=== PATIENT | female | born 1980 | race Caucasian/White ===

== ENCOUNTER 2022-08-08 17:11 | Emergency (ER) | payer BC, SELFPAY ==
[2022-08-08 17:23] VITALS: BP 123/56; PULSE 91; RESP 18; TEMP 36.8; O2SAT 97; BMI 23.3
--- NOTE | 2022-08-08 18:23 | ED.EYEPROB ---
HPI - Eye Problem General Chief complaint: Eye Problems Stated complaint: Left eye cyst Time Seen by Provider: 08/08/22 18:23 Source: patient Mode of arrival: ambulatory Limitations: no limitations History of Present Illness HPI Narrative: Patient is a 41-year-old female who presents to the emergency department for evaluation of a left upper lid hordeolum. Onset 2 months ago. Seen by PCP 1 month ago, advised warm compress, and antibiotic eye drops. Called them 2 weeks later, advised still problematic, was evaluated again, received RX for antibiotic eye ointment. Received referral to ophthalmology, seen 2 days ago, received prescription for an ointment, has an appointment for incision and drainage 08/29/2022. States she can not wait this long. Related Data Allergies Allergy/AdvReac Type Severity Reaction Status Date / Time No Known Allergies Allergy Verified 08/08/22 17:29 Review of Systems Review of Systems: Yes all other systems are reviewed and are negative PMFSH Past Medical History Attestation statement: The following information was validated with the patient. Source: old records reviewed Social History Social History Advance Directives: No Advance Directives Information Provided: No Physical Exam Vital Signs: Vital Signs: Last Vital Signs Temp 98.3 F 08/08/22 17:23 Pulse 91 08/08/22 17:23 Resp 18 08/08/22 17:23 BP 123/56 L 08/08/22 17:23 Pulse Ox 97 08/08/22 17:23 O2 Del Method 08/08/22 17:23 BMI result Body Mass Index 23.3 Appearance: Alert.?Oriented to person, place and time. No acute distress.?Normal affect. Eyes: Pupils equal, round and reactive to light.?EOMi. No nystagmus. Left upper lid hordeolum? CVS: Heart sounds normal. Normal heart rate and rhythm.? Pulses normal.?? Respiratory: No respiratory distress.? Lung sounds clear to auscultation bilaterally?? Skin: Skin warm and dry.? Normal skin color.? Medical Decision Making Medical Decision Making MDM Narrative: Patient is a 41-year-old female who presents emergency department for persistent left eye hordeolum. Has scheduled incision and drainage with ophtho, does not want to wait for appointment. Physical examination is not consistent with periorbital or orbital cellulitis at this time. Discussed with patient plan of care, continued use of antibiotic ointment, warm compresses, follow-up with ophthalmology. We additionally discussed that she may contact her insurance company to find in network ophthalmologists and contact our office to see whether she may be evaluated/treated sooner, also provided with contact information for Dr. Campos associated with [facility]. Reviewed worrisome signs and symptoms that would warrant re-evaluation in the emergency department. All questions answered. Stable for discharge. Differential Diagnosis Differential Diagnoses: The differential diagnosis associated with the presentation includes (hordeolum, chalazion, blepharitis) External Record Review External record reviewed: Outpatient record Discharge Plan Discharge Clinical Impression: Hordeolum Patient Disposition: Home, Self-Care Instructions: Ashwini (ED) Additional Instructions: Please continue taking antibiotic eye ointment as prescribed by your eye doctor. Follow-up for incision and drainage as you have scheduled. As we discussed, you may contact your insurance company to find eye doctors within network coverage and determine whether you can schedule an appointment to be seen sooner. I have also provided the contact information for the eye doctor associated with this hospital, you may try contacting their office to determine if they have a sooner appointment/whether they are within your insurance coverage. You may return back to emergency department with any new or worsening symptoms or concerns. Referrals: Hugo Campos [Physician] -
== END 2022-08-08 18:40 | disposition home or self-care (01) ==
PROVIDERS: Emergency Provider Emergency Medicine Emergency Medical Services
DX: H00.014 Hordeolum externum left upper eyelid (principal)
CPT/HCPCS: 99282

== ENCOUNTER 2024-12-08 10:47 | Outpatient (REF) | payer OTHER, SELFPAY ==
--- OUTSIDE RECORDS SUMMARY | 2024-12-08 11:52 | XMS_ITS | Encounter Summary ---
Author Organization [employer] Address [address] [place] [address] [address] [place] [address] Care Team Providers Care Outreach Worker Name Role Phone Deidre Madison MD Primary Care Provider [phone] Reason for Visit * Reason Onset Date Comments ER Follow-up 05/02/2022 Encounter Details Date Type Department Care Team (Late st Contact Info) Description 05/02/2022 Telephone [facility] MED [facility] PEDS [address] [place] [address] Deidre Madison MD [address] [place] [address] ER Follow-up Social History Tobacco Use Types Packs/Day Years Used Date Smoking Tobacco: Never Assessed Comments Unknown Sex and Gender Information Value Date Recorded Sex Assigned at Female 04/01/2022 10:14 AM EDT Legal Sex Female 10:14 AM EDT Gender Identity Female 04/01/2022 10:14 AM EDT Sexual Orientation Straight 04/01/2022 10 :14 AM EDT COVID-19 Exposure Response Date Recorded In the last 10 days, have yo u been in contact with someone who was confirmed or suspected to have Coronavirus/COVID-19? No / Unsure 05/03/2022 2:14 PM EST documented as of this encounter Miscellaneous Notes * Telephone Encounter - Alden Reid RN - 05/03/2022 10:14 AM EST Request for ED notes faxed to [facility] HIM dept at [phone]. * Telephone Encounter - Cammie Paredes RN - 05/03/2022 8:41 AM EST Call returned for triage at pt request. Per pt was given Rx for muscle relaxer methocarbamol 750mg Q6H. Per pt would need to go to a chiropractor per ED recommendation. Pt wants follow up appt. Agrees to [facility] at [facility] today 05/03 at 2:20pm. Will route to team to obtain [facility] ER notes forprovider Dr. Madison. 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 Will attempt call again tomorrow morning. * Telephone Encounter - Louise Cobb - 05/02/2022 1:50 PM EST Tc from pt returning call please see notes below. * Telephone Encounter - Louise Cobb - 05/02/2022 11:51 AM EST Patient calling to report ED visit on 05/01 at [facility] . Diagnosed with Cervical strain, trapisia spasmus. Patient advised will forward to team nurse for follow up. PCP Dr. Jiang documented in this encounter Plan of Treatment Not on file documented as of this encounter Visit Diagnoses Not on filedocumented in this encounter Care Teams Outreach Worker Relationship Specialty Start Date End Date Deidre Madison MD [address] [place] [address] PCP - General Family Medicine 06/09/13 documented as of this encounter
--- OUTSIDE RECORDS SUMMARY | 2024-12-08 11:52 | XMS_ITS | Clinical Summary ---
Author Organization [facility] Address [address] [place] [address] Phone Care Team Providers Care Client Leader Name Role Phone Deidre Madison MD Primary Care Provider [phone] Allergies No known active allergies Medications hydrOXYzine HCL (ATARAX) 25 mg tablet Take 1 tablet (25 mg total) by mouth every 6 (six) hours for 3 days. 12 tablet 10/04/2024 Active Active Problems No known active problems Encounters Date Type Department Care Team Description 10/04/2024 9:29 AM EDT - 10/04/2024 11:39 AM EDT Emergency [facility] Emergency [address] [place] [address] Chest pain, unspecified type (Primary Dx) Discharge Disposition: Home or Self Care from Last 3 Months Surgical History Surgery Date Site/Laterality Comments OTHER SURGICAL HISTORY 2013 Bilateral PROCEDURE: HISTORICAL ESSURE (BILATERAL OCCLUSION FALLOPIAN TUBES-PERMA) Medical History Medical History Date Comments Depression 17 yrs ago DX:Depression Depression with anxiety 03/08/2020 DX:Depre ssion with anxiety Family History Medical History Relation Name Comments Hypertension Father Other: cancer of bone Father Hyperthyroidism Mother on med Hyperthyroidism Sister 1 on med Cervical cancer Neg Hx Ovarian cancer Neg Hx Prostate cancer Neg Hx Relation Name Status Comments Brother x5 Father Alive Mother Alive Sister 1 Alive Sister 2 x4 Alive Social History Tobacco Use Types Packs/Day Years Used Date Smoking Tobacco: Never Smokeless Tobacco: Never Alcohol Use Standard Drinks/Week Comments No 0 (1 standard drink = 0.6 oz pur e alcohol) Comments Unknown Sex and Gender Information Value Date Recorded Sex Assigned at Female 04/21/2024 9:16 AM EST Legal Sex Female 2:16 AM EST Gender Identity Female 04/21/2024 9:16 AM EST Sexual Orientation Straight 04/21/2024 9: 31 AM EST Obstetrics History Last Filed Vital Signs Vital Sign Reading Time Taken Comments Blood Pressure 112/72 10/04/2024 9:07 AM EDT Pulse 96 10/04/2024 9:07 AM EDT Temperature 36.8 C (98.2 F) 10/04/2024 9:07 AM EDT Respiratory Rate 16 10/04/2024 9:07 AM EDT Oxygen Saturation 97% 10/04/2024 9:07 AM EDT Inhaled Oxygen Concentration - - Weight 77.1 kg (170 lb) 10/04/2024 9:59 AM EDT Height 170.7 cm (5' 7.2 ) 10/04/2024 9:59 AM EDT Body Mass Index 26.47 10/04/2024 9:59 AM EDT Plan of Treatment Health Maintenance Due Date Last Done Comments Breast Cancer Screening 1982 Hepatitis B Vaccines (1 of 3 - 19+ 3-dose series) 2001 HPV Vaccines (2 - 3-dose series) 03/27/2009 02/27/2009 HIV Screening 05/05/2022 Social Influencers of Health Screening 05/05/2022 COVID-19 Vaccine ( season) 2024 11/14/2020, 10/24/2020 Cervical Cancer Screening: Pap Smear 07/05/2024 07/05/2021, 12/24/2017, 12/24/2017 Depression Screening 10/16/2024 10/17/2023 Influenza Vaccine (#1) 2025 , 07/25/2022, 02/18/2018, Additional history exists DTaP,Tdap,and Td Vaccines (4 - Td or Tdap) 10/16/2033 10/17/2023, 08/09/2013, 01/10/2012 Hepatitis C Screening Completed 10/17/2023 HIB Vaccines Aged Out No longer eligi ble based on patient's age to complete this topic Hepatitis A Vaccines Aged Out No long er eligible based on patient's age to complete this topic IPV Vaccines Aged Out No longer eligi ble based on patient's age to complete this topic MMR Vaccines Aged Out No longer eligi ble based on patient's age to complete this topic Meningococcal ACWY Vaccine Aged Out N o longer eligible based on patient's age to complete this topic Meningococcal B Vaccine Aged Out No l onger eligible based on patient's age to complete this topic Pneumococcal Vaccine: Pediatrics (0 to 5 Years) and At-Risk Patients (6 to 49 Years) Aged Out No longer eligible based on patient's age to complete this topic RSV Immunization Patients Under 20 months Aged Out No longer eligible based on patient's age to complete this topic Varicella Vaccines Aged Out No longer eligible based on patient's age to complete this topic Procedures Procedure Name Priority Date/Time Associated Diagnosis Comments ECG ANNOTATED 10/05/2024 XR CHEST 2 VIEWS STAT 10/04/2024 10:4 3 AM EDT ECG 12-LEAD STAT 10/04/2024 10:19 AM EDT D-DIMER STAT 10/04/2024 10:13 AM EDT TROPONIN I HIGH SENSITIVITY STAT 10/04/2024 10:06 AM EDT CBC WITH AUTO DIFFERENTIAL STAT 10/04/2024 9:05 AM EDT MAGNESIUM STAT 10/04/2024 9:05 AM EDT LIPASE STAT 10/04/2024 9:05 AM EDT COMPREHENSIVE METABOLIC PANEL STAT 10/04/2024 9:05 AM EDT CBC AND DIFFERENTIAL STAT 10/04/2024 9:05 AM EDT TROPONIN I HIGH SENSITIVITY STAT 10/04/2024 9:05 AM EDT ECG 12-LEAD STAT 10/04/2024 8:59 AM EDT PAP SMEAR Routine 07/05/2021 from Last 3 Months or Most Recently Relevant to Health Maintenance Results * ECG-Annotated (10/05/2024) us Provider Onbase ECG ORDERABLES Final Result * XR Chest 2 Views (10/04/2024 10:43 AM EDT) Anatomical Region Laterality Modality Body Radiographic Juliane ging 10/04/2024 10:4 6 AM EDT Impressions 10/04/2024 10:48 AM EDT No acute pulmonary disease. No change in appearance of the lungs since the prior study performed 03/24/2014. Code 74497 -------- FINAL REPORT -------- Dictated By: Josh Gomez Dictated Date: 10/04/2024 10:46 ET Assigned Physician: Josh Gomez Reviewed and Electronically Signed By: Josh Gomez Signed Date: 10/04/2024 10:48 ET Workstation ID: [id number] Transcribed By: Self Edit Transcribed Date: 10/04/2024 10:46 ET Narrative 10/04/2024 10:48 AM EDT HISTORY: The patient is a 44-year-old female with chest pain. FINDINGS: Sitting AP and lateral radiographs of the chest demonstrate normal appearance of the bony structures. The cardiac and mediastinal contours are within normal limits. The lungs and costophrenic angles are clear. A soft tissue calcification is present adjacent to the greater tuberosity of the right humerus consistent with calcific tendinitis, not demonstrated on the prior study performed 03/24/2014. Cholecystectomy clips are are again noted. Procedure Note Josh Gomez MD - 10/04/2024 HISTORY: The patient is a 44-year-old female with chest pain. FINDINGS: Sitting AP and lateral radiographs of the chest demonstratenormal appearance of the bony structures. The cardiac and mediastinalcontours are within normal limits. The lungs and costophrenic angles areclear. A soft tissue calcification is present adjacent to the greater tuberosityof the right humerus consistent with calcific tendinitis, not demonstratedon the prior study performed 03/24/2014. Cholecystectomy clips are areagain noted. IMPRESSION: No acute pulmonary disease. No change in appearance of the lungs since theprior study performed 03/24/2014. Code 29458 -------- FINAL REPORT -------- Dictated By: Josh Gomez Dictated Date: 10/04/2024 10:46 ET Assigned Physician: Josh Gomez Reviewed and Electronically Signed By: Josh Gomez Signed Date: 10/04/2024 10:48 ET Workstation ID: [id number] Transcribed By: Self Edit Transcribed Date: 10/04/2024 10:46 ET us Aramis Navarro MD IMG XR PROCEDURES Final Result * ECG 12 lead (10/04/2024 10:19 AM EDT) Only the most recent of2 resultswithin the time period is included. Ventricular Rate ECG 69 BPM GEMUSE Atrial Rate 69 BPM GEMUSE P-R Interval 130 ms GEMUSE QRS Duration 84 ms GEMUSE Q-T Interval 384 ms GEMUSE QTc 411 ms GEMUSE P Wave [place] 62 degrees GEMUSE R [place] 37 degrees GEMUSE T [place] 32 degrees GEMUSE ECG Interpretation Normal sinus rhythm Normal ECG When compared with ECG of 04-OCT-2024 08:59, No significant change was found Confirmed by MD Rogelio, Juana Diaz ([id number]) on 10/05/2024 7:43:28 AM GEMUSE 10/04/2024 10:1 9 AM EDT 10/05/2024 7:43 AM EDT us Aramis Navarro MD ECG ORDERABLES Final Result GEMUSE * D-dimer, quantitative (10/04/2024 10:13 AM EDT) D-Dimer, Quant (D-DU) 202 <=230 ng/mL DDU LAB COAGULATION METHOD 10/04/2024 10:40 AM EDT [facility] Blood Venous blood specimen / Unknown Venipuncture / Unknown 10/04/2024 10:13 AM EDT 10/04/2024 10:25 AM EDT Narrative [facility] - 10/04/2024 10:40 AM EDT D-Dimer <230 ng/mL (D-Dimer units) is the threshold for exclusion of DVT/PE. D-Dimer may be elevated in: Critically ill, severely infected, trauma patients, DIC, acute CVA, acute TX, unstable angina, AF, old age, , and smoking. D-Dimer may be decreased with: Initiation of heparin therapy and oral anticoagulants. Carla SAHU LAB BLOOD ORDERABLES Final Re sult Performing Organization Address [facility]/ZIP Co de Phone Number [facility] [address] [place] [address], [place] [phone] * Troponin I high sensitivity (10/04/2024 10:06 AM EDT) Only the most recent of2 resultswithin the time period is included. [facility] High Sensitivity Troponin I 6 <=54 ng/L LAB CHEMISTRY METHOD 10/04/2024 11:05 AM EDT [facility] Blood Venous blood specimen / Unknown Venipuncture / Unknown 10/04/2024 10:06 AM EDT 10/04/2024 10:25 AM EDT Narrative [facility] - 10/04/2024 11:05 AM EDT High levels of biotin in samples may falsely decrease hsTroponin values. Use caution when interpreting hsTroponin results in patients taking biotin who exhibit renal impairment (eGFR <60) or in patients taking more than 20 mg/day of biotin. us Aramis Navarro MD LAB BLOOD ORDERABLES Final Resu lt Performing Organization Address [facility]/ZIP Co de Phone Number [facility] [address] [place] [address], [place] [phone] * (ABNORMAL) CBC auto differential (10/04/2024 9:05 AM EDT) [facility] WBC 6.4 4.8 - 10.8 K/mcL LAB HEMETOLOGY METHOD 10/04/2024 9:56 AM [facility] RBC 4.90(H) 3.80 - 4.80 M/mcL LAB HEMETOLOGY METHOD 10/04/2024 9:56 AM [facility] Hemoglobin 11.8 11.5 - 16.0 g/dL LAB HEMETOLOGY METHOD 10/04/2024 9:56 AM [facility] Hematocrit 38.1 35.0 - 47.0 % LAB HEMETOLOGY METHOD 10/04/2024 9:56 AM [facility] MCV 78.4(L) 79.0 - 98.0 FL LAB HEMETOLOGY METHOD 10/04/2024 9:56 AM [facility] MCH 24.3(L) 27.0 - 32.0 pcg LAB HEMETOLOGY METHOD 10/04/2024 9:56 AM [facility] MCHC 31.0(L) 32.0 - 37.0 g/dL LAB HEMETOLOGY METHOD 10/04/2024 9:56 AM [facility] RDW 15.0 11.0 - 15.0 % LAB HEMETOLOGY METHOD 10/04/2024 9:56 AM [facility] Platelets 339 130 - 400 K/mcL LAB HEMETOLOGY METHOD 10/04/2024 9:56 AM [facility] MPV 10.5 7.0 - 11.0 FL LAB HEMETOLOGY METHOD 10/04/2024 9:56 AM [facility] NRBC 0.0 <1.0 % LAB HEMETOLOGY METHOD 10/04/2024 9:56 AM [facility] NRBC Absolute 0.00 <0.10 K/mcL LAB HEMETOLOGY METHOD 10/04/2024 9:56 AM [facility] Neutrophils Relative 72.6 % LAB HEMETOLOGY METHOD 10/04/2024 9:56 AM [facility] Lymphocytes Relative 17.4 % LAB HEMETOLOGY METHOD 10/04/2024 9:56 AM [facility] Monocytes Relative 6.4 % LAB HEMETOLOGY METHOD 10/04/2024 9:56 AM [facility] Eosinophils Relative 2.5 % LAB HEMETOLOGY METHOD 10/04/2024 9:56 AM [facility] Basophils Relative 0.5 % LAB HEMETOLOGY METHOD 10/04/2024 9:56 AM [facility] Immature Granulocytes Relative 0.6 % LAB HEMETOLOGY METHOD 10/04/2024 9:56 AM [facility] Neutrophils Absolute 4.64 1.50 - 7.00 K/mcL LAB HEMETOLOGY METHOD 10/04/2024 9:56 AM [facility] Lymphocytes Absolute 1.11 1.00 - 5.00 K/mcL LAB HEMETOLOGY METHOD 10/04/2024 9:56 AM [facility] Monocytes Absolute 0.41 0.20 - 1.00 K/mcL LAB HEMETOLOGY METHOD 10/04/2024 9:56 AM [facility] Eosinophils Absolute 0.16 0.00 - 0.50 K/mcL LAB HEMETOLOGY METHOD 10/04/2024 9:56 AM [facility] Basophils Absolute 0.03 0.00 - 0.20 K/mcL LAB HEMETOLOGY METHOD 10/04/2024 9:56 AM [facility] Immature Granulocytes Absolute 0.04(H) 0.00 - 0.03 K/mcL LAB HEMETOLOGY METHOD 10/04/2024 9:56 AM [facility] Blood Venous blood specimen / Unknown Venipuncture / Unknown 10/04/2024 9:05 AM EDT 10/04/2024 9:46 AM EDT us Aramis Navarro MD LAB BLOOD ORDERABLES Final Resu lt Performing Organization Address [facility]/ZIP Co de Phone Number [facility] [address] [place] [address], [place] [phone] * Magnesium (10/04/2024 9:05 AM EDT) Magnesium 1.9 1.9 - 2.6 mg/dL LAB CHEMISTRY METHOD 10/04/2024 10:18 AM EDT [facility] Blood Venous blood specimen / Unknown Venipuncture / Unknown 10/04/2024 9:05 AM EDT 10/04/2024 9:46 AM EDT us Aramis Navarro MD LAB BLOOD ORDERABLES Final Resu lt Performing Organization Address [facility]/ZIP Co de Phone Number [facility] [address] [place] [address], [place] [phone] * Lipase (10/04/2024 9:05 AM EDT) Lipase 21 13 - 75 unit/L LAB CHEMISTRY METHOD 10/04/2024 10:18 AM EDT [facility] Blood Venous blood specimen / Unknown Venipuncture / Unknown 10/04/2024 9:05 AM EDT 10/04/2024 9:46 AM EDT us Aramis Navarro MD LAB BLOOD ORDERABLES Final Resu lt Performing Organization Address City/[facility]/ZIP Co de Phone Number [facility] [address] [place] [address], [place] [phone] * Comprehensive metabolic panel (10/04/2024 9:05 AM EDT) [facility] Sodium 139 133 - 145 mmol/L LAB CHEMISTRY METHOD 10/04/2024 10:18 AM [facility] Potassium 4.1 3.5 - 5.5 mmol/L LAB CHEMISTRY METHOD 10/04/2024 10:18 AM [facility] Chloride 107 96 - 110 mmol/L LAB CHEMISTRY METHOD 10/04/2024 10:18 AM [facility] CO2 23 21 - 32 mmol/L LAB CHEMISTRY METHOD 10/04/2024 10:18 AM [facility] Anion Gap 9 3 - 11 LAB CHEMISTRY METHOD 10/04/2024 10:18 AM [facility] Glucose 79 70 - 100 mg/dL LAB CHEMISTRY METHOD 10/04/2024 10:18 AM [facility] BUN 16 5 - 25 mg/dL LAB CHEMISTRY METHOD 10/04/2024 10:18 AM [facility] Creatinine 0.94 0.50 - 1.10 mg/dL LAB CHEMISTRY METHOD 10/04/2024 10:18 AM [facility] eGFR 78 >=60 mL/min/1. 73m2 LAB CHEMISTRY METHOD 10/04/2024 10:18 AM [facility] Comment:Calculation based on the Chronic Kidney Disease Epidemiology Collaboration (CKD-EPI) equation refit without adjustment for race. BUN/Creatinine Ratio 17.0 LAB CHEMISTRY METHOD 10/04/2024 10:18 AM [facility] Calcium 9.0 8.5 - 10.5 mg/dL LAB CHEMISTRY METHOD 10/04/2024 10:18 AM [facility] AST (SGOT) 11 10 - 42 unit/L LAB CHEMISTRY METHOD 10/04/2024 10:18 AM [facility] ALT (SGPT) 19 10 - 60 unit/L LAB CHEMISTRY METHOD 10/04/2024 10:18 AM [facility] Alkaline Phosphatase 92 42 - 121 unit/L LAB CHEMISTRY METHOD 10/04/2024 10:18 AM EDT [facility] Total Protein 7.0 6.0 - 8.0 g/dL LAB CHEMISTRY METHOD 10/04/2024 10:18 AM EDT [facility] Albumin 3.7 3.2 - 5.0 g/dL LAB CHEMISTRY METHOD 10/04/2024 10:18 AM EDT [facility] Total Bilirubin 0.2 0.0 - 1.4 mg/dL LAB CHEMISTRY METHOD 10/04/2024 10:18 AM EDT [facility] Blood Venous blood specimen / Unknown Venipuncture / Unknown 10/04/2024 9:05 AM EDT 10/04/2024 9:46 AM EDT us Aramis Navarro MD LAB BLOOD ORDERABLES Final Resu lt [facility] [address] [place] [address], [place] [phone] * Pap smear (07/05/2021) 07/05/2021 Narrative HISTORICAL TESTING LAB RESULTING AGENCY - 07/26/2021 7:51 AM EST [id number] THINPREP PAP, IMAGED: NEGATIVE FOR SQUAMOUS INTRAEPITHELIAL LESION AND MALIGNANCY . NOTE: THE PAP TEST IS A SCREENING TEST WITH AN INHERENT FALSE NEGATIVE RATE. AUTOMATED PRESCREENING OF ALL LIQUID BASED SPECIMENS IS PERFORMED BY THE THINPREP IMAGING SYSTEM UNLESS OTHERWISE STATED. VIRAL LEBRON(ASCP) (CASE ELECTRONICALLY SIGNED 07 25 2021) RESULT OF APTIMA HIGH RISK HPV ASSAY: HIGH RISK HPV: NEGATIVE (SEROTYPES 16,18,31,33,35,39,45,51,52,56,58,59,66,68) COMPLETED ON 2021-07-10 ADEQUACY: SATISFACTORY ENDOCERVICAL/TRANSFORMATION ZONE COMPONENT PRESENT. SOURCE: THINPREP PAP HPV ANY DX: REFLEX 16 AND 18, CERVICAL, IMAGED CLINICAL INFORMATION: HPV ANY DIAGNOSIS. HORMONES, PAP HX NEG 2017, LMP 06/26/2021, Z12.4 Lydia Cedilol [facility] CYTOLOGY ORDERABLES Final Result HISTORICAL TESTING LAB RESULTING AGENCY from Last 3 Months or Most Recently Relevant to Health Maintenance Insurance MEDICAID - [place] Care Teams Client Leader Relationship Specialty Start Date End Date Deidre Madison MD [address] [place] [id number] PCP - General Family Medicine 04/08/24
[2024-12-08 16:49] LABS: Alanine Aminotransferase 17 U/L (0-31); Albumin Level 4.4 g/dL (3.5-5.0); Alkaline Phosphatase 89 U/L (39-117); Anion Gap 12 (12-20); Aspartate Amino Transferase 26 U/L (5-31); Blood Urea Nitrogen 14 mg/dL (9-16); Calcium 9.1 mg/dL (8.4-10.2); Carbon Dioxide 27 mmol/L (22-29); Chloride 105 mmol/L (96-108); Cholesterol 221 mg/dL (<200); Estimated Glomerular Filt Rate > 60; HDL Cholesterol 58 mg/dL (>40); Potassium 4.3 mmol/L (3.3-5.1); Sodium 140 mmol/L (135-145); Total Protein 7.2 g/dL (6.5-8.0); Triglycerides 90 mg/dL (<150)
[2024-12-09 06:30] LABS: HIV Num 1 0.05 S/CO (0.00-0.99); ~HepC Num1 0.11 S/CO (0.00-0.79); ~Hepatitis C Antibody Nonreactive (Nonreactive)
== END 2024-12-08 10:48 | disposition home or self-care (01) ==
LOC: HO.CHCLDS 10:47
PROVIDERS: Visit Provider Student in an Organized Health Care Education/Training Program
DX: Z11.4 Encounter for screening for human immunodeficiency virus [HIV] (principal); R63.5 Abnormal weight gain
CPT/HCPCS: 36415; 80048; 80061; 80076; 84443; 86803; 87389